=== PATIENT | male | born 1980 | race Caucasian/White ===

== ENCOUNTER 2017-02-25 07:47 | Day surgery (SDC) | payer BC ==
--- NOTE | ~2017-02-25 | EGD ---
EGD REPORT [facility] [address] [id number] NAME: HIRO ROSALSE : [birth year] [place]US : [place] [facility] [place] [id number] AGE: 36 ADM/REG DATE : 02/25/17 MR#: [id number] REPORT SERV DATE: 02/25/17 DICTATED BY: CARA GARCÍA DATE: 02/25/17 REPORT STATUS : Draft TRANSCRIBED BY: [facility] DATE: 02/25/17 [facility] Center Patient Name: Hiro Rosales Date of : 1980 Attending MD: CARA GARCÍA, Procedure Date No Time: 02/25/2017 Procedure: Upper EUS Indications: Gastric deformity on endoscopy/Subepithelial tumor versus extrinsic compression Referring MD: FAIZAN VAN III, MD Medicines: Monitored Anesthesia Care Complications: No immediate complications. Estimated blood loss: None. Procedure: Pre-Anesthesia Assessment: - ASA Grade Assessment: II - A patient with mild systemic disease. After obtaining informed consent, the endoscope was passed under direct vision. Throughout the procedure, the patient's blood pressure, pulse, and oxygen saturations were monitored continuously. The Endoscope was introduced through the mouth, and advanced to the second part of duodenum. The GIF H190 [id number] was introduced through the mouth, and advanced to the second part of duodenum. The GIF H190 [id number] was introduced through the mouth, and advanced to the second part of duodenum. The upper EUS was accomplished without difficulty. The patient tolerated the procedure well. Findings: Endoscopic Finding : The examined esophagus was endoscopically normal. A single medium-sized papule (nodule) with no bleeding and no stigmata of recent bleeding was found in the gastric body. Biopsies were taken with a cold forceps for histology. Verification of patient identification for the specimen was done. Estimated blood loss was minimal. The cardia and gastric fundus were normal on retroflexion. The exam of the stomach was otherwise normal. The examined duodenum was endoscopically normal. Endosonographic Finding : An oval intramural (subepithelial) lesion was found in the body of the stomach. The lesion was hypoechoic, hyperechoic and heterogenous. Sonographically, the lesion appeared to originate from the submucosa (Layer 3). The lesion measured 19 mm (in maximum thickness). The lesion also measured 8 mm in diameter. The outer endosonographic borders were well defined. An attempt was made to obtain FNA but position was EGD REPORT [address] [place]. [address] NAME: HIRO ROSALES : [birth year] [place]US : [place] [facility] [place]#: [id number] AGE: 36 ADM/REG DATE : 02/25/17 MR#: [id number] REPORT SERV DATE: 02/25/17 DICTATED BY: CARA GARCÍA DATE: 02/25/17 REPORT STATUS : Draft TRANSCRIBED BY: [employer] DATE: 02/25/17 difficult and could not penetrate with needle. Therefore upper scope reinserted and multiple bite on bite bx obtained. Lesion was very firm. No lymphadenopathy seen. There was no sign of significant endosonographic abnormality in the entire pancreas. There was no sign of significant endosonographic abnormality in the common bile duct. There was no sign of significant endosonographic abnormality in the examined duodenum. There was no sign of significant endosonographic abnormality in the esophagus. Impression: - Normal esophagus. - A single medium-sized papule (nodule) with no bleeding and no stigmata of recent bleeding was found in the stomach. Biopsied. - Normal examined duodenum. - An intramural (subepithelial) lesion was found in the body of the stomach. The lesion appeared to originate from within the submucosa (Layer 3). - There was no sign of significant pathology in the entire pancreas. - There was no sign of significant pathology in the common bile duct. - There was no sign of significant pathology in the examined duodenum. - There was no sign of significant pathology in the esophagus. Recommendation: - Return to previous diet. - Continue present medications. - Await pathology results. Procedure Code(s): --- Professional --- 38784, Esophagogastroduodenoscopy, flexible, transoral; with endoscopic ultrasound examination, including the esophagus, stomach, and either the duodenum or a surgically altered stomach where the jejunum is examined distal to the anastomosis 87998, 59, Esophagogastroduodenoscopy, flexible, transoral; with biopsy, single or multiple Diagnosis Code(s): --- Professional --- K31.9, Disease of stomach and duodenum, unspecified K31.89, Other diseases of stomach and duodenum EGD REPORT [facility] [address] [place] [address] [place] [address] NAME: HIRO ROSALES : [birth year] STATUS : REG [facility]#: [id number] AGE: 36 ADM/REG DATE : 02/25/17 MR#: [id number] REPORT SERV DATE: 02/25/17 DICTATED BY: CAAR GARCÍA DATE: 02/25/17 REPORT STATUS : Draft TRANSCRIBED BY: [employer] DATE: 02/25/17 CPT copyright 2013 [employer]. All rights reserved. The codes documented in this report are preliminary and upon remote operations producer review may be revised to meet current compliance requirements. Attending Participation: I personally performed the entire procedure. CARA GARCÍA, 02/25/2017 9:21 AM Number of Addenda: 0 Note Initiated On: 02/25/2017 8:38 AM Scope Withdrawal Time 0 hours 0 minutes 0 seconds [address] [facility] [place] [address]
[~2017-02-25 07:47] MED LIST: ADVIL PO; CELEXA20 PO; MULTIVIT/MIN PO; NORV10 PO; VOLT75 PO; ZESTRIL20 MG PO
== END 2017-02-25 23:59 | disposition home or self-care (01) ==
LOC: DMU 07:47
PROVIDERS: Internal Medicine Gastroenterology
PROC: 0DJ08ZZ Inspection of Upper Intestinal Tract, Via Natural or Artificial Opening Endoscopic (ICD-10-PCS; 2017-02-25)
PROC: 0DB68ZX Excision of Stomach, Via Natural or Artificial Opening Endoscopic, Diagnostic (ICD-10-PCS; principal; 2017-02-25 16:00)
DX: K31.89 Other diseases of stomach and duodenum (principal); K31.9 Disease of stomach and duodenum, unspecified; I10 Essential (primary) hypertension; F41.9 Anxiety disorder, unspecified; Z98.890 Other specified postprocedural states; Z87.891 Personal history of nicotine dependence; Z79.899 Other long term (current) drug therapy
CPT/HCPCS: 88305; C1725